=== PATIENT | female | born 1985 | race Two or more races ===

== ENCOUNTER 2017-05-30 22:19 | Emergency (ER) | payer OTHER ==
[~2017-05-30] VITALS: Ht 160 cm; Wt 72.6 kg
--- NOTE | 2017-05-30 23:45 | NUR ---
PT AMBULATORY TO ER BED 12. BIBSELF C/O ABD DISCOMFORT (BLOATING/CONSTIPATION) X 1 MONTH, WORSE TODAY. PT PLACED ON [employer]. VSS/RESP EVEN UNLABORED/NAD NOTED/SKIN WARM AND DRY/DENIES N-V-D/AOX4. AWAITING MD MORRIS.
--- NOTE | 2017-05-31 00:13 | NUR ---
XRAY AT BEDSIDE.
[2017-05-31] MEDS ORDERED: MINERAL OIL 133 ML (PYXIS) 1 EA ENEMA RC ONE ×2 (00:19→00:30)
[2017-05-31] MEDS ORDERED: MAGNESIUM CITRATE 296 ML BOTTLE ONE (00:57)
[2017-05-31] MEDS ORDERED: MAGNESIUM CITRATE 296 ML BOTTLE PO ONE (01:00)
--- NOTE | 2017-05-31 01:09 | NUR ---
Patient discharged to home in stable condition. Written and verbal after care instructions given. Patient verbalizes understanding of instruction. Patient ambulatory with a steady gait.
[2017-05-31 01:10] VITALS: BP 126/81
== END 2017-05-31 01:12 | disposition home or self-care (01) ==
LOC: ER 22:23
DX: K59.00 Constipation, unspecified (principal); F10.10 Alcohol abuse, uncomplicated
CPT/HCPCS: 74018; A4606; Z7610